=== PATIENT | male | born 1950 | race Two or more races ===

== ENCOUNTER 2016-08-19 20:24 | Inpatient (IN) | payer OTHER ==
[~2016-08-19] VITALS: Ht 167.6 cm; Wt 88.4 kg
[~2016-08-19 20:24] MED LIST: ASPI-231 PO; ATOR20TA50 PO; CARV3.1240 PO; CHL10C PO; FOLI1TAB51 PO; FURO40TA4 PO; GABA300C8 PO; PANT40TA2 PO; POTA10TA51 PO; THIA50CA PO
[2016-08-19 21:14] LABS: Basophils # (auto) 0 uL; Basophils % (auto) 0.4 % (0.0-2.0); Eosinophils # (auto) 0.1 uL; Hematocrit 39.6 % (41.0-53.0); Lymphocytes # (auto) 0.4 uL; Lymphocytes % (auto) 6.5 % (10.0-50.0); Mean Corpuscular Hemoglobin 31.9 pg (28.0-32.0); Mean Corpuscular Hgb Conc. 32.8 g/dL (32.0-36.0); Mean Corpuscular Volume 97.2 fL (80.0-100.0); Mean Platelet Volume 9.1 fL (7.4-10.4); Monocytes # (auto) 0.5 uL; Monocytes % (auto) 9.1 % (0.0-12.0); Neutrophils # (auto) 4.7 uL; Platelet Count (auto) 102 10^3/uL (140-450); Red Cell Distribution Width 17.8 % (11.6-16.0); White Blood Cell 5.6 10^3/uL (4.4-10.8)
[2016-08-19] MEDS ORDERED: ASPirin 81 mg TAB PO ONE (21:15)
[2016-08-19] MEDS ORDERED: NITROGLYCERIN 0.4MG/HR TOPICAL PATCH TD ONE (21:15)
[2016-08-19 21:27] LABS: Partial Thromboplastin Time 25.2 sec (22.64-33.71)
[2016-08-19 21:28] LABS: INR 1.27 (0.9-1.15); Prothrombin Time 13.1 sec (9.37-12.3)
[2016-08-19 21:34] LABS: Albumin 3.4 g/dL (3.4-5.0); Anion Gap 13 (5-15); Blood Urea Nitrogen 17 mg/dL (7-18); Calcium 7.8 mg/dL (8.5-10.1); Carbon Dioxide 23 mmol/L (21-32); Chloride 102 mmol/L (98-107); Glucose 99 mg/dL (74-106); Potassium 3.5 mmol/L (3.5-5.1); Sodium 138 mmol/L (136-145)
[2016-08-19 21:36] LABS: Aspartate Aminotransferase 150 U/L (15-37); BUN/Creatinine Ratio 19.1; GFR African American 110 mL/min; GFR Non-African American 91 mL/min
[2016-08-19 22:00] LABS: Alkaline Phosphatase 134 U/L (45-117); Bilirubin, Total 1.7 mg/dL (0.2-1.0); Magnesium 1.5 mg/dL (1.6-2.6); Total Protein 6.7 g/dL (6.4-8.2)
[2016-08-19 22:01] LABS: B-Type Natriuretic Peptide 1551.56 pg/mL (0-100); Temperature: 21.9 C (20.0-25.0)
[2016-08-19] MEDS ORDERED: FUROSEMIDE 40 MG/4 ML VIAL IV ONE (22:15)
[2016-08-19] MEDS ORDERED: ENALAPRILAT 1.25 MG/ML-1ML VIAL IV ONE (22:45)
[2016-08-19] MEDS: MAGNESIUM SULFATE 1GM/100ML 100 ML IV SCH ×2 (23:15→23:30)
[2016-08-20] VITALS (7 sets, daily range): BP systolic 100–136; BP diastolic 69–90
[2016-08-20] MEDS ORDERED: ONDANSETRON HCL 4 MG/2 ML VIAL IV PRN (00:30)
[2016-08-20] MEDS ORDERED: NITROGLYCERIN 0.4 MG SL TAB SL PRN (00:30)
[2016-08-20] MEDS ORDERED: DEXTROSE (50%) 50ML SYRG IV PRN (00:30)
[2016-08-20] MEDS ORDERED: ACETAMINOPHEN 325 MG TAB PO PRN (00:30)
[2016-08-20] MEDS ORDERED: MORPHINE SULF INJ 2 MG/ML SYRINGE 1ML IV PRN (00:30)
[2016-08-20] MEDS: InsuLIN REG 1unit/0.01ml Soln (100units/ml) SC SCH ×4 (06:00→23:56)
[2016-08-20] MEDS: ACCU-CHEK COMFORT CURVE STRIP VI SCH ×4 (06:00→23:53)
[2016-08-20] MEDS: CARVEDILOL 3.125 MG TAB PO SCH ×3 (10:00→21:13)
[2016-08-20] MEDS ORDERED: FUROSEMIDE 40 MG TAB PO SCH (10:00)
[2016-08-20] MEDS ORDERED: ALBUTEROL SULF 2.5 MG/0.5ML(0.5%) NEB SOLN NEB ONE (10:17)
[2016-08-20] MEDS ORDERED: BUMETANIDE (0.25MG/ML) 4 ML VIAL IV ONE (10:30)
[2016-08-20] MEDS: ENOXAPARIN SOD 40 MG/0.4 ML SYRINGE SC SCH (10:44)
[2016-08-20] MEDS: FAMOTIDINE 20 MG TAB PO SCH ×2 (10:45→21:12)
[2016-08-20] MEDS: POTASSIUM CHL 10 Meq TABLET PO SCH (10:46)
[2016-08-20] MEDS: FOLIC ACID 1 MG TAB PO SCH (10:46)
[2016-08-20] MEDS: THIAMINE HCL 100 MG TAB PO SCH (10:46)
[2016-08-20] MEDS: methylPREDNISolone SOD SUCC 40 MG/ML VL IV SCH ×2 (13:47→20:10)
[2016-08-20] MEDS: cefTRIAXone 1GM/50ML D5W 50 ML IV SCH (13:48)
[2016-08-20] MEDS: chlordiazePOXIDE HCL 5 MG CAP PO PRN (13:48)
[2016-08-20] MEDS: FUROSEMIDE 20 MG/2 ML VIAL IV SCH (18:13)
[2016-08-20] MEDS: IPRATROPIUM BROM 0.5 MG/2.5ML INH SOL NEB PRN (19:51)
[2016-08-20] MEDS: ALBUTEROL SULF 2.5 MG/0.5ML(0.5%) NEB SOLN NEB PRN (19:52)
[2016-08-20] MEDS: ATORVASTATIN 20 MG TAB PO SCH (21:12)
[2016-08-21] VITALS: BP 137/69
[2016-08-21] MEDS: methylPREDNISolone SOD SUCC 40 MG/ML VL IV SCH ×3 (03:50→19:56)
[2016-08-21 04:00] VITALS: BP 108/78
[2016-08-21 04:16] VITALS: BP 108/78
[2016-08-21 04:57] LABS: Basophils # (auto) 0 uL; Eosinophils # (auto) 0 uL; Hemoglobin 11.7 g/dL (13.5-17.5); Lymphocytes # (auto) 0.2 uL; Lymphocytes % (auto) 7.3 % (10.0-50.0); Mean Corpuscular Hemoglobin 32.2 pg (28.0-32.0); Mean Corpuscular Hgb Conc. 33.5 g/dL (32.0-36.0); Mean Corpuscular Volume 96.1 fL (80.0-100.0); Mean Platelet Volume 9.3 fL (7.4-10.4); Monocytes # (auto) 0.1 uL; Monocytes % (auto) 3.4 % (0.0-12.0); Neutrophils % (auto) 89.3 % (37.0-80.0); Platelet Count (auto) 91 10^3/uL (140-450); Red Cell Distribution Width 17.3 % (11.6-16.0); White Blood Cell 3.4 10^3/uL (4.4-10.8)
[2016-08-21] MEDS: FUROSEMIDE 20 MG/2 ML VIAL IV SCH ×2 (05:01→18:00)
[2016-08-21 05:28] LABS: Albumin 2.8 g/dL (3.4-5.0); BUN/Creatinine Ratio 15.5; Calcium 7.7 mg/dL (8.5-10.1); Magnesium 1.5 mg/dL (1.6-2.6)
[2016-08-21 05:31] LABS: Bilirubin, Total 1.7 mg/dL (0.2-1.0); Phosphorus 2.9 mg/dL (2.5-4.90); Total Protein 5.9 g/dL (6.4-8.2)
[2016-08-21] MEDS: ACCU-CHEK COMFORT CURVE STRIP VI SCH ×3 (06:12→18:07)
[2016-08-21] MEDS: InsuLIN REG 1unit/0.01ml Soln (100units/ml) SC SCH ×3 (06:20→18:07)
[2016-08-21] MEDS ORDERED: POTASSIUM CHL 20 Meq TABLET PO ONE (07:15)
[2016-08-21 08:00] VITALS: BP 114/66
[2016-08-21] MEDS ORDERED: MAGNESIUM SULFATE 1GM/100ML 100 ML IV ONE (09:00)
[2016-08-21] MEDS ORDERED: BUMETANIDE (0.25 MG/ML) INJ 10ML IV ONE (09:00)
[2016-08-21] MEDS: cefTRIAXone 1GM/50ML D5W 50 ML IV SCH (09:27)
[2016-08-21] MEDS: THIAMINE HCL 100 MG TAB PO SCH (09:47)
[2016-08-21] MEDS: FOLIC ACID 1 MG TAB PO SCH (09:47)
[2016-08-21] MEDS: ENOXAPARIN SOD 40 MG/0.4 ML SYRINGE SC SCH (09:47)
[2016-08-21] MEDS: SPIRONOLACTONE 25 MG TAB PO SCH (09:47)
[2016-08-21] MEDS: CARVEDILOL 3.125 MG TAB PO SCH ×2 (09:47→21:05)
[2016-08-21] MEDS: POTASSIUM CHL 10 Meq TABLET PO SCH (09:47)
[2016-08-21] MEDS: FAMOTIDINE 20 MG TAB PO SCH ×2 (09:47→21:05)
[2016-08-21] MEDS: POTASSIUM CHL 20MEQ/100ML 100 ML IV SCH ×2 (11:19→16:14)
[2016-08-21 12:00] VITALS: BP 95/66
[2016-08-21] MEDS: MAGNESIUM SULFATE 1GM/100ML 100 ML IV SCH ×2 (13:35→16:14)
[2016-08-21] MEDS: IPRATROPIUM BROM 0.5 MG/2.5ML INH SOL NEB PRN (14:23)
[2016-08-21] MEDS: ALBUTEROL SULF 2.5 MG/0.5ML(0.5%) NEB SOLN NEB PRN (14:24)
[2016-08-21] MEDS: chlordiazePOXIDE HCL 5 MG CAP PO PRN (15:08)
[2016-08-21] MEDS: HYDROcodone-ACET 5/325MG TAB PO PRN ×2 (15:08→19:57)
[2016-08-21 20:06] VITALS: BP 113/82
[2016-08-21] MEDS: ATORVASTATIN 20 MG TAB PO SCH (21:05)
[2016-08-22] VITALS: BP 116/67
[2016-08-22] MEDS: ACCU-CHEK COMFORT CURVE STRIP VI SCH ×4 (00:02→16:59)
[2016-08-22] MEDS: InsuLIN REG 1unit/0.01ml Soln (100units/ml) SC SCH ×4 (00:06→17:00)
[2016-08-22 04:00] VITALS: BP 107/75
[2016-08-22] MEDS: methylPREDNISolone SOD SUCC 40 MG/ML VL IV SCH (04:25)
[2016-08-22 05:00] LABS: Basophils # (auto) 0 uL; Basophils % (auto) 0.1 % (0.0-2.0); Eosinophils # (auto) 0 uL; Hematocrit 35.5 % (41.0-53.0); Hemoglobin 11.8 g/dL (13.5-17.5); Lymphocytes # (auto) 0.3 uL; Lymphocytes % (auto) 4.5 % (10.0-50.0); Mean Corpuscular Hemoglobin 32.6 pg (28.0-32.0); Mean Corpuscular Hgb Conc. 33.3 g/dL (32.0-36.0); Mean Corpuscular Volume 97.7 fL (80.0-100.0); Mean Platelet Volume 9.5 fL (7.4-10.4); Monocytes # (auto) 0.3 uL; Monocytes % (auto) 5.7 % (0.0-12.0); Neutrophils # (auto) 5.4 uL; Neutrophils % (auto) 89.7 % (37.0-80.0); Platelet Count (auto) 95 10^3/uL (140-450); Red Cell Distribution Width 16.9 % (11.6-16.0)
[2016-08-22] MEDS: FUROSEMIDE 20 MG/2 ML VIAL IV SCH ×2 (05:11→17:10)
[2016-08-22 05:19] LABS: BUN/Creatinine Ratio 26.2; Calcium 7.7 mg/dL (8.5-10.1); Magnesium 2.1 mg/dL (1.6-2.6); Phosphorus 3.1 mg/dL (2.5-4.90); Potassium 3.1 mmol/L (3.5-5.1)
[2016-08-22 08:00] VITALS: BP 113/83
[2016-08-22] MEDS: FAMOTIDINE 20 MG TAB PO SCH (09:12)
[2016-08-22] MEDS: cefTRIAXone 1GM/50ML D5W 50 ML IV SCH (09:12)
[2016-08-22] MEDS: THIAMINE HCL 100 MG TAB PO SCH (09:13)
[2016-08-22] MEDS: POTASSIUM CHL 10 Meq TABLET PO SCH (09:13)
[2016-08-22] MEDS: FOLIC ACID 1 MG TAB PO SCH (09:13)
[2016-08-22] MEDS: SPIRONOLACTONE 25 MG TAB PO SCH (09:13)
[2016-08-22] MEDS: ENOXAPARIN SOD 40 MG/0.4 ML SYRINGE SC SCH (09:14)
[2016-08-22] MEDS: CARVEDILOL 3.125 MG TAB PO SCH (09:14)
[2016-08-22] MEDS: POTASSIUM CHL 20MEQ/100ML 100 ML IV SCH (10:43)
[2016-08-22] MEDS: MAGNESIUM SULFATE 1GM/100ML 100 ML IV SCH (10:44)
[2016-08-22] MEDS ORDERED: POTASSIUM CHL 20MEQ/100ML 100 ML IV ONE (10:45)
[2016-08-22] MEDS ORDERED: MAGNESIUM SULFATE 1GM/100ML 100 ML IV ONE (10:45)
[2016-08-22] MEDS ORDERED: predniSONE 20 MG TAB PO SCH (10:58)
[2016-08-22 12:00] VITALS: BP 113/84
[2016-08-22] MEDS: IPRATROPIUM BROM 0.5 MG/2.5ML INH SOL NEB PRN (13:20)
[2016-08-22] MEDS: ALBUTEROL SULF 2.5 MG/0.5ML(0.5%) NEB SOLN NEB PRN (13:21)
[2016-08-22] MEDS: HYDROcodone-ACET 5/325MG TAB PO PRN (15:41)
[2016-08-22 17:06] VITALS: BP 99/71
[2016-08-22 20:00] VITALS: BP 121/64
== END 2016-08-22 20:00 | disposition hospice, inpatient (51) | DRG 291 ==
LOC: ER 20:24 → TELE-CENTR 20:25 → DOU IN ICU 08-20 13:15 → TELE-WESTW 08-22 15:14
PROVIDERS: ADMIT Nurse Practitioner; ATTEND Internal Medicine
DX: I13.0 Hypertensive heart and chronic kidney disease with heart failure and stage 1 through stage 4 chronic kidney disease, or unspecified chronic kidney disease (principal); I50.43 Acute on chronic combined systolic (congestive) and diastolic (congestive) heart failure; J96.20 Acute and chronic respiratory failure, unspecified whether with hypoxia or hypercapnia; J44.1 Chronic obstructive pulmonary disease with (acute) exacerbation; J98.11 Atelectasis; D68.9 Coagulation defect, unspecified; E11.22 Type 2 diabetes mellitus with diabetic chronic kidney disease; K21.9 Gastro-esophageal reflux disease without esophagitis; F41.9 Anxiety disorder, unspecified; N18.9 Chronic kidney disease, unspecified; E78.5 Hyperlipidemia, unspecified; I25.119 Atherosclerotic heart disease of native coronary artery with unspecified angina pectoris; F10.20 Alcohol dependence, uncomplicated; K70.30 Alcoholic cirrhosis of liver without ascites; R79.89 Other specified abnormal findings of blood chemistry; D69.6 Thrombocytopenia, unspecified; Z95.1 Presence of aortocoronary bypass graft; Z83.3 Family history of diabetes mellitus; Z82.49 Family history of ischemic heart disease and other diseases of the circulatory system; Z91.19 Patient's noncompliance with other medical treatment and regimen
CPT/HCPCS: 36415; 36600; 71010; 80048; 80053; 82805; 82962; 83735; 83880; 84100; 84484; 85025; 85610; 85730; 93005; 94640; 96374; 96375; J0696; J1815; J3480

== ENCOUNTER 2017-09-26 18:23 | Emergency (ER) | payer OTHER ==
[~2017-09-26] VITALS: Ht 165.1 cm; Wt 79.4 kg
[~2017-09-26 18:23] MED LIST changes: +GABA300C10 PO; -GABA300C8 PO
[2017-09-26] MEDS ORDERED: EPINEPHrine HCL 1 MG/10 ML SYRG IV ONE (18:25)
[2017-09-26] MEDS ORDERED: D5W 5% 100 ML BAG IV ONE (18:25)
[2017-09-26] MEDS ORDERED: ATROPINE SULF 0.5 MG/5ML SYR IV ONE (18:25)
[2017-09-26] MEDS ORDERED: AMIODARONE HCL 150 MG in D5W 5% 100 ML IV ONE (18:45)
[2017-09-26] MEDS ORDERED: AMIODARONE HCL (50 MG/ ML) 3 ML VIAL IV ONE ×2 (18:45→18:47)
[2017-09-26] MEDS ORDERED: LORazepam 2MG/ML-1ML VIAL ONE (18:53)
[2017-09-26] MEDS ORDERED: SODIUM CHLORIDE 0.9% 1,000 ML IVB ONE (18:57)
[2017-09-26] MEDS ORDERED: AMIODARONE HCL 900 MG in DEXTROSE 500 ML IV SCH (19:00)
[2017-09-26] MEDS ORDERED: ALBUTEROL SULF 2.5 MG/0.5ML(0.5%) NEB SOLN NEB ONE (19:15)
[2017-09-26] MEDS ORDERED: IPRATROPIUM BROM 0.5 MG/2.5ML INH SOL NEB ONE (19:15)
[2017-09-26] MEDS ORDERED: ETOMIDATE (2MG/ML) 20ML VIAL IV ONE ×2 (19:24→20:30)
[2017-09-26] MEDS ORDERED: SUCCINYLCHOLINE CHLORIDE 20 MG/ML 10ML VIAL IV ONE ×2 (19:24→20:30)
[2017-09-26 19:32] VITALS: BP 56/41
[2017-09-26] MEDS ORDERED: NOREPINEPHRINE BITARTRATE 2 ML IV ONE (19:58)
[2017-09-26] MEDS ORDERED: DOPamine 1600MCG/ML D5W 250 ML IV ONE (20:30)
[2017-09-26] MEDS ORDERED: NOREPINEPHRINE 16 MG/500ML KIT 500 ML IV SCH (20:30)
[2017-09-26] MEDS ORDERED: NOREPINEPHRINE BITARTRATE 1 ML IV ONE (23:22)
[2017-09-27] MEDS ORDERED: AMIODARONE HCL 900 MG in DEXTROSE 500 ML IV SCH (01:00)
[2017-10-06] MEDS ORDERED: LORazepam 2MG/ML-1ML VIAL IV ONE (11:15)
== END 2017-09-27 00:08 | disposition expired ==
LOC: ER 18:24
DX: I46.9 Cardiac arrest, cause unspecified (principal); I48.0 Paroxysmal atrial fibrillation; I10 Essential (primary) hypertension; K21.9 Gastro-esophageal reflux disease without esophagitis; I25.10 Atherosclerotic heart disease of native coronary artery without angina pectoris; F41.9 Anxiety disorder, unspecified; E11.9 Type 2 diabetes mellitus without complications; E78.5 Hyperlipidemia, unspecified; Z46.82 Encounter for fitting and adjustment of non-vascular catheter; Z66 Do not resuscitate; Z79.82 Long term (current) use of aspirin; Z95.1 Presence of aortocoronary bypass graft
CPT/HCPCS: 31500; 36415; 36600; 51702; 71045; 82805; 87070; 87077; 87186; 87205; 92950; 93005; 94640; 96365; 96367; 99291; J0171; J0282; J0330; J0461; J2060; J7030; J7050; J7060; 94002